=== PATIENT | female | born 1965 | race Caucasian/White ===

== ENCOUNTER 2019-02-12 22:40 | Emergency (ER) | payer MEDICAID ==
[~2019-02-12] VITALS: Ht 157.5 cm; Wt 93.0 kg
[~2019-02-12 22:40] MED LIST: ATOR40TA PO; CIPR500 PO; LANS15EC PO; METF500 PO; OMEP40CA12 PO; RANI150 PO; SERT25 PO
[2019-02-12] MEDS ORDERED: Glucotrol10 MG PO (23:08)
[2019-02-12 23:40] LABS: Calcium, Ionized (POC) 1.22 mmol/L (1.10-1.46); Chloride (POC) 109 mmol/L (98-108); Creatinine (POC) 0.9 mg/dL (0.6-1.0); Glucose (ISTAT POC) 95 mg/dL (70-99); Hemoglobin (POC) 13.9 g/dL (12.0-16.0); Potassium (POC) 3.4 mmol/L (3.5-5.5); Sodium (POC) 143 mmol/L (135-148); Total CO2 (POC) 23 mmol/L (21-32)
== END 2019-02-13 01:10 | disposition home or self-care (01) ==
LOC: ER 22:40
PROVIDERS: Emergency Medicine
DX: E11.649 Type 2 diabetes mellitus with hypoglycemia without coma (principal); I10 Essential (primary) hypertension; Z88.0 Allergy status to penicillin; Z91.013 Allergy to seafood; Z91.018 Allergy to other foods; Z79.84 Long term (current) use of oral hypoglycemic drugs; Z79.899 Other long term (current) drug therapy
CPT/HCPCS: 80047; 82947; 85014; 99283

== ENCOUNTER → 2019-11-07 | Outpatient (CLI) | payer BC ==
[~2019-11-07] MED LIST changes: +Bactrim Ds Tab1 EACH PO; +Glucotrol10 MG PO; +LOSA25 PO; +Zantac150 MG
[2019-11-07 17:10] LABS: Adenovirus F 40/41 Not Detected (NOT DETECT); Astrovirus Not Detected (NOT DETECT); Campylobacter Sp Not Detected (NOT DETECT); Cryptosporidium Not Detected (NOT DETECT); Cyclospora Cayetanensis Not Detected (NOT DETECT); E. Coli O157 Not Detected (NOT DETECT); Entamoeba Histolytica Not Detected (NOT DETECT); Enteroaggregative E. coli-EAEC Not Detected (NOT DETECT); Enteropathogenic E. coli-EPEC Not Detected (NOT DETECT); Enterotoxigenic E. coli-ETEC Not Detected (NOT DETECT); Giardia Lamblia Not Detected (NOT DETECT); Norovirus GI/GII Not Detected (NOT DETECT); Plesiomonas Shigelloides Not Detected (NOT DETECT); Rotavirus A Not Detected (NOT DETECT); Salmonella Sp Not Detected (NOT DETECT); Sapovirus Not Detected (NOT DETECT); Shiga Toxin-prod E. coli-STEC Not Detected (NOT DETECT); Shigella/Enteroin E. coli-EIEC Not Detected (NOT DETECT); Vibrio Cholerae Not Detected (NOT DETECT); Vibrio Sp Not Detected (NOT DETECT); Yersinia Enterocolitica Not Detected (NOT DETECT)
== END | disposition home or self-care (01) ==
LOC: LAB SHORT 08:30 → LAB 08:30
PROVIDERS: Nurse Practitioner
DX: R10.11 Right upper quadrant pain (principal); R19.7 Diarrhea, unspecified
CPT/HCPCS: 0097U

== ENCOUNTER 2021-05-01 11:32 | Day surgery (SDC) | payer BC ==
[~2021-05-01] VITALS: Ht 157.5 cm; Wt 86.9 kg
[~2021-05-01 11:32] MED LIST changes: +ATOR20 PO; +OMEP20ER PO
[2021-05-01] MEDS ORDERED: TRULICITY1.5 MG/0.1 SC (11:56)
--- NOTE | 2021-05-01 13:13 | NUR ---
05/01/21 1313 Luz Marina Camilo History, Chart, Medications and Allergies reviewed before start of procedure. Patient confirms NPO status and agrees with scheduled surgery. 3-LEAD EKG REVIEWED WITH PHYSICIAN PRIOR TO START OF PROCEDURE. MONITOR INTACT WITH CONTINUOUS PULSE OXIMETRY AND INTERMITTENT BP. PATIENT DETERMINED TO BE ASA APPROPRIATE FOR PROPOFOL SEDATION PRIOR TO START OF PROCEDURE BY .
--- NOTE | 2021-05-01 14:02 | NUR ---
Patient up to Ambulate independently. Gait steady. Discharge instructions reviewed with patient. Patient verbalizes understanding. Copy given to patient to take home. Patient States Post-Procedure ride home has been arranged. Discharged via wheelchair to private car for ride home.
== END 2021-05-01 14:02 | disposition home or self-care (01) ==
LOC: ORSCMMR 11:32 → ORD 13:00 → ORSCMMR 14:02
PROVIDERS: Surgery
PROC: 0DBE8ZX Excision of Large Intestine, Via Natural or Artificial Opening Endoscopic, Diagnostic (ICD-10-PCS; principal; 2021-05-01 13:00)
DX: R19.4 Change in bowel habit (principal); Z80.0 Family history of malignant neoplasm of digestive organs; Z83.71 Family history of colonic polyps; E78.5 Hyperlipidemia, unspecified; K21.9 Gastro-esophageal reflux disease without esophagitis; I10 Essential (primary) hypertension; E11.9 Type 2 diabetes mellitus without complications; Z79.84 Long term (current) use of oral hypoglycemic drugs
CPT/HCPCS: 82947; 88305; J2704; J7120

== ENCOUNTER → 2022-05-23 | Outpatient (CLI) | payer SELFPAY ==
[~2022-05-23] MED LIST changes: +TRULICITY1.5 MG/0.1 SC
== END | disposition home or self-care (01) ==
LOC: LAB 12:00 → LAB SHORT 12:00
DX: N39.0 Urinary tract infection, site not specified (principal)
CPT/HCPCS: 87077; 87086; 87186

== ENCOUNTER 2024-02-01 16:41 | Emergency (ER) | payer OTHER ==
[~2024-02-01] VITALS: Ht 157.5 cm; Wt 78.9 kg
[2024-02-01 17:49] LABS: Source, Urine Clean Catch
[2024-02-01 17:53] LABS: Appearance, Urine Hazy (Clear); Blood, Urine 4+ (Neg); Color, Urine Yellow (P-Yellow); Glucose Qualitative, Urine Neg (Neg); Ketones, Urine 1+ (Neg); Leukocyte Esterase, Urine 3+ (Neg); Nitrite, Urine Neg (Neg); Protein, Urine 4+ (Neg); Specific Gravity, Urine 1.025 (1.003-1.022); Urobilinogen, Urine 2+ (Normal)
[2024-02-01 17:53] LABS: BASOPHILS PERCENT AUTO 1 % (0-2); EOSINOPHILS ABSOLUTE AUTO 0.05 K/mm3 (0.00-0.68); EOSINOPHILS PERCENT AUTO 0 % (0-6); Hematocrit 37.6 % (33.0-51.0); Hemoglobin 12.7 g/dL (11.5-16.0); IMMATURE GRAN ABSOLUTE AUTO 0.14 K/mm3 (0.00-0.10); IMMATURE GRAN PERCENT AUTO 1 % (0-1); LYMPHOCYTES ABSOLUTE AUTO 3.18 K/mm3 (0.84-5.20); LYMPHOCYTES PERCENT AUTO 26 % (21-46); MONOCYTES ABSOLUTE AUTO 0.96 K/mm3 (0.16-1.47); MONOCYTES PERCENT AUTO 8 % (4-13); Mean Corpuscular HGB 30.3 pg (26.0-34.0); Mean Corpuscular HGB Conc 33.8 g/dL (31.5-36.5); Mean Corpuscular Volume 90 fL (80-100); Mean Platelet Volume 9.9 fL (9.1-12.4); NEUTROPHILS ABSOLUTE AUTO 7.79 K/mm3 (1.96-9.15); NEUTROPHILS PERCENT AUTO 64 % (41-73); Platelet Count 302 K/mm3 (150-400); RDW Coefficient Variation 13.3 % (11.7-14.2); RDW Standard Deviation 43.7 fL (35.1-46.3); Red Blood Cell Count 4.19 M/mm3 (3.80-5.20); White Blood Cell Count 12.22 K/mm3 (4.00-11.30)
[2024-02-01 18:07] LABS: Bilirubin, Urine 1+ (Neg)
[2024-02-01 18:08] LABS: Bacteria Mod /hpf; Hyaline Casts 0-2 /lpf (0-2); Squamous Epithelial Cells Rare /hpf (Few)
[2024-02-01 18:13] LABS: Albumin/Globulin Ratio 0.6 (0.8-1.8); Bilirubin, Total 0.5 mg/dL (0.1-1.0); Bun/Creatinine Ratio 17.8 (12.0-20.0); Calcium, Blood 9.2 mg/dL (8.5-10.1); Creatinine, Blood 1.18 mg/dL (0.40-1.00); Globulin, Blood 4.8 g/dL (2.2-4.0); Potassium, Blood 3.4 mmol/L (3.5-5.5); Total Protein, Blood 7.8 g/dL (6.4-8.2)
[2024-02-01 19:35] LABS: Source, Urine Clean Catch
[2024-02-01 19:45] LABS: Appearance, Urine Hazy (Clear); Blood, Urine 4+ (Neg); Color, Urine Yellow (P-Yellow); Glucose Qualitative, Urine Neg (Neg); Ketones, Urine Neg (Neg); Leukocyte Esterase, Urine 3+ (Neg); Nitrite, Urine Neg (Neg); Protein, Urine 3+ (Neg); Urobilinogen, Urine 1+ (Normal)
[2024-02-01 19:55] LABS: Bilirubin, Urine 1+ (Neg)
[2024-02-01 20:06] LABS: Bacteria Many /hpf; Mucus Light (0-Heavy); Squamous Epithelial Cells Mod /hpf (Few); White Blood Cells, Urine TNTC /hpf (0-5)
[2024-02-01 20:07] LABS: Hyaline Casts 0-2 /lpf (0-2)
[2024-02-01] MEDS ORDERED: Ondansetron HCl 2 MG / ML 2ML Vial IV ONE (21:20)
[2024-02-01] MEDS ORDERED: Morphine Sulfate 4 MG/1 ML Injection IV ONE (21:20)
[2024-02-01] MEDS ORDERED: Trimethoprim/Sulfamethoxazole DS Tab PO ONE (22:15)
[2024-02-02] MEDS ORDERED: SULTRIDS PO (00:38)
[2024-02-02 00:54] VITALS: BP 140/76
== END 2024-02-02 00:54 | disposition home or self-care (01) ==
LOC: ER 16:41
PROVIDERS: Student in an Organized Health Care Education/Training Program
DX: N12 Tubulo-interstitial nephritis, not specified as acute or chronic (principal); E11.9 Type 2 diabetes mellitus without complications; I10 Essential (primary) hypertension; F17.200 Nicotine dependence, unspecified, uncomplicated; Z79.84 Long term (current) use of oral hypoglycemic drugs; Z79.899 Other long term (current) drug therapy; Z91.018 Allergy to other foods; Z88.0 Allergy status to penicillin; Z91.030 Bee allergy status; Z88.8 Allergy status to other drugs, medicaments and biological substances
CPT/HCPCS: 74177; 80053; 81001; 83605; 85025; 87086; 96374; 96375; 99284-25; A9270; J2270; J2405; Q9967

== ENCOUNTER → 2024-07-20 | Outpatient (CLI) | payer OTHER ==
[~2024-07-20] MED LIST changes: +SULTRIDS PO
== END | disposition home or self-care (01) ==
LOC: LAB SHORT 17:36 → LAB 17:36
DX: N39.0 Urinary tract infection, site not specified (principal)
CPT/HCPCS: 87077; 87086; 87186

== ENCOUNTER → 2024-08-03 | Outpatient (CLI) | payer OTHER ==
[2024-08-03 10:21] LABS: Source, Urine Clean Catch
[2024-08-03 10:58] LABS: Appearance, Urine Clear (Clear); Bilirubin, Urine Neg (Neg); Blood, Urine 1+ (Neg); Color, Urine Yellow (P-Yellow); Glucose Qualitative, Urine 4+ (Neg); Ketones, Urine Neg (Neg); Leukocyte Esterase, Urine Neg (Neg); Nitrite, Urine Neg (Neg); Protein, Urine 3+ (Neg); Specific Gravity, Urine 1.025 (1.003-1.022); Urobilinogen, Urine NORM (Normal)
[2024-08-03 12:05] LABS: Squamous Epithelial Cells Mod /hpf (Few)
[2024-08-03 12:06] LABS: Bacteria Mod /hpf; White Blood Cells, Urine 0-2 /hpf (0-5)
[2024-08-03 12:32] LABS: Bacterial Vaginosis PCR Negative (NEGATIVE); Candida Group, PCR NOT DETECTED (NOT DETECT); Candida glabrata-krusei, PCR NOT DETECTED (NOT DETECT)
[2024-08-11 08:15] LABS: HPV GENOTYPE 16 BY TMA Not Detected; HPV GENOTYPE 18/45 BY TMA Not Detected; HPV HIGH RISK BY TMA Detected; HPV SOURCE Cervical; HPVG SOURCE Cervical
== END ==
LOC: LAB SHORT 10:15 → LAB 10:15
PROVIDERS: Student in an Organized Health Care Education/Training Program
DX: N89.8 Other specified noninflammatory disorders of vagina (principal); Z12.4 Encounter for screening for malignant neoplasm of cervix; R10.30 Lower abdominal pain, unspecified
CPT/HCPCS: 81001; 81515; 87086; 87624; 87625; G0123

== ENCOUNTER → 2024-12-06 | Outpatient (CLI) | payer OTHER | LOC: LAB 07:34 → LAB SHORT 07:34 | DX: D26.0 Other benign neoplasm of cervix uteri (principal) | CPT/HCPCS: 88305; 88342 ==

== ENCOUNTER 2025-02-02 12:24 | Day surgery (SDC) | payer OTHER ==
[~2025-02-02] VITALS: Ht 157.5 cm; Wt 82.4 kg
[2025-02-02] MEDS ORDERED: ACTOS30 MG PO (12:48)
--- NOTE | 2025-02-02 14:12 | NUR ---
02/02/25 1412 DAMIAN GAY PT IN PRE OP AREA. READY FOR OR. CALL LIGHT AT BEDSIDE. PT RESTING WITH EYES CLOSED WHEN RN ATTEMPTED TO CHECK ON PT, AND UPDATE ON SURGERY SCHEDULE. PREVIOUS CASE DELAYED ENTRY INTO OR, WILL CAUSE DELAY IN THIS PT'S PROCEDURE GOING BACK ON TIME.
[2025-02-02] MEDS ORDERED: Midazolam HCl 1MG / ML 2ML Vial ONE (14:44)
[2025-02-02] MEDS ORDERED: FentaNYL Citrate 50 MCG/ML 2 ML Injection ONE (14:51)
[2025-02-02 15:53] VITALS: BP 138/81
--- NOTE | 2025-02-02 16:41 | NUR ---
02/02/25 1641 Lavelle Marie PT'S O2 INITIALLY 92-100% IN SDU. SHE DENIED CP, DIZZINESS, OR SOB. PT WAS GIVEN INCENTIVE SPIROMETER AT 1616 AND MAINTAINED O2 >95% AFTER THAT TIME. PT REPORTED TOLERABLE 2/10 PAIN UPON D/C. SHE DENIED NAUSEA.
== END 2025-02-02 16:41 | disposition home or self-care (01) ==
LOC: ORSCSDS 12:24
PROVIDERS: Obstetrics & Gynecology
PROC: 0UBC7ZX Excision of Cervix, Via Natural or Artificial Opening, Diagnostic (ICD-10-PCS; principal; 2025-02-02 14:00)
DX: N87.9 Dysplasia of cervix uteri, unspecified (principal); E11.9 Type 2 diabetes mellitus without complications; E78.5 Hyperlipidemia, unspecified; I10 Essential (primary) hypertension; K21.9 Gastro-esophageal reflux disease without esophagitis; F41.8 Other specified anxiety disorders; E66.9 Obesity, unspecified; Z68.33 Body mass index [BMI] 33.0-33.9, adult; Z79.84 Long term (current) use of oral hypoglycemic drugs; Z79.899 Other long term (current) drug therapy; F17.210 Nicotine dependence, cigarettes, uncomplicated
CPT/HCPCS: 82947; 88305; A9270; J2003; J2250; J2704; J3010

== ENCOUNTER → 2025-02-16 | Outpatient (CLI) | payer OTHER ==
[~2025-02-16] MED LIST changes: +ACTOS30 MG PO
[2025-02-16 18:41] LABS: Bacterial Vaginosis PCR Negative (NEGATIVE); Candida Group, PCR NOT DETECTED (NOT DETECT); Candida glabrata-krusei, PCR NOT DETECTED (NOT DETECT)
== END ==
LOC: LAB 15:16 → LAB SHORT 15:16
PROVIDERS: Obstetrics & Gynecology
DX: N76.0 Acute vaginitis (principal)
CPT/HCPCS: 81515